=== PATIENT | male | born 2000 | race American Indian/Alaskan Native ===

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

== ENCOUNTER 2019-02-15 17:56 | Emergency (ER) | payer SELFPAY ==
[2019-02-15 18:02] VITALS: BP 142/76
[2019-02-15] MEDS ORDERED: ROCEPHIN IM ONE (18:18)
[2019-02-15] MEDS ORDERED: ZITHROMAX PO ONE (18:18)
[2019-02-15] MEDS ORDERED: XYLOCAINE 1% MPF 5 mL INFILTRATI ONE (18:18)
--- NOTE | 2019-02-15 18:22 | Emergency Department Report ---
ED Male HPI - General Chief complaint: Urogenital-Male Stated complaint: NOT FEELING WELL Time Seen by Provider: 02/15/19 18:15 Source: patient Mode of arrival: Ambulatory Limitations: No Limitations - History of Present Illness Initial comments: 19 y.o aam presents to ER with open lesions on penis, white discharge, for the past week. no fever, chills or night sweats. h/o multiple sexual partners, unprotected. -: Gradual - Related Data Previous Rx's Medication Instructions Recorded Last Taken Type Azithromycin [Zithromax Z-MELISSA] 250 mg PO QDAY #6 tablet 08/02/16 Unknown Rx Benzonatate [Tessalon Perles] 100 mg PO Q8HR #14 capsule 08/02/16 Unknown Rx Ibuprofen [Motrin] 800 mg PO Q8HR PRN #14 tablet 08/02/16 Unknown Rx guaiFENesin [Mucinex] 600 mg PO Q6HR #20 tab.er.12h 08/02/16 Unknown Rx Acyclovir [Zovirax Tab] 400 mg PO Q8H 10 Days #30 tab 02/15/19 Unknown Rx Allergies Allergy/AdvReac Type Severity Reaction Status Date / Time No Known Allergies Allergy Unverified 02/15/19 18:01 ED Review of Systems ROS: Stated complaint: NOT FEELING WELL Other details as noted in HPI Comment: All other systems reviewed and negative Gastrointestinal: nausea Genitourinary: urgency Skin: rash, lesions ED Past Medical Hx - Past Medical History Previous Medical History?: No - Surgical History Past Surgical History?: No - Family History Family history: no significant - Social History Smoking Status: Current Every Day Smoker Substance Use Type: Alcohol, Marijuana - Medications Home Medications: Home Medications Medication Instructions Recorded Confirmed Last Taken Type Azithromycin [Zithromax Z-MELISSA] 250 mg PO QDAY #6 tablet 08/02/16 Unknown Rx Benzonatate [Tessalon Perles] 100 mg PO Q8HR #14 capsule 08/02/16 Unknown Rx Ibuprofen [Motrin] 800 mg PO Q8HR PRN #14 tablet 08/02/16 Unknown Rx guaiFENesin [Mucinex] 600 mg PO Q6HR #20 tab.er.12h 08/02/16 Unknown Rx Acyclovir [Zovirax Tab] 400 mg PO Q8H 10 Days #30 tab 02/15/19 Unknown Rx ED Physical Exam - General Limitations: No Limitations General appearance: alert, in no apparent distress - Head Head exam: Present: atraumatic, normocephalic - Eye Eye exam: Present: normal appearance, PERRL, EOMI - ENT ENT exam: Present: normal exam - Neck Neck exam: Present: normal inspection - Respiratory Respiratory exam: Present: normal lung sounds bilaterally - GI/Abdominal GI/Abdominal exam: Present: soft, normal bowel sounds - exam: Present: other (penile lesion) - Extremities Exam Extremities exam: Present: normal inspection - Back Exam Back exam: Present: normal inspection - Neurological Exam Neurological exam: Present: alert, oriented X3, CN II-XII intact - Skin Skin exam: Present: rash ED Course Vital Signs 02/15/19 18:01 Temperature 98.2 F Pulse Rate 78 Respiratory 14 Rate Blood Pressure 142/76 O2 Sat by Pulse 99 Oximetry ED Medical Decision Making - Medical Decision Making patient received rocephin 250mg im x 1 azithromycin 1gm po x 1. d/c with acyclovir 400mg po tid x 10days. Critical care attestation.: If time is entered above; I have spent that time in minutes in the direct care of this critically ill patient, excluding procedure time. ED Disposition Clinical Impression: Herpes genitalis in men, Urethritis Disposition: DC-01 TO HOME OR SELFCARE Is pt being admited?: No Does the pt Need Aspirin: No Condition: Stable Instructions: Genital Herpes Simplex (ED) Prescriptions: Acyclovir [Zovirax Tab] 400 mg PO Q8H 10 Days #30 tab Forms: STI Treatment and Prevention
== END 2019-02-15 18:32 | disposition home or self-care (01) ==
LOC: ED 17:56
DX: A60.00 Herpesviral infection of urogenital system, unspecified (principal); N34.2 Other urethritis; F17.200 Nicotine dependence, unspecified, uncomplicated; F12.90 Cannabis use, unspecified, uncomplicated; Z79.899 Other long term (current) drug therapy
CPT/HCPCS: 96372; 99282; J0696